=== PATIENT | female | born 1985 | race Two or more races ===

== ENCOUNTER 2017-04-09 14:03 | Observation (INO) | payer MEDICAID, OTHER ==
[~2017-04-09] VITALS: Ht 165.1 cm; Wt 149.7 kg
[2017-04-09 15:01] VITALS: BP 118/79
[2017-04-09 15:02] LABS: Basophils # (auto) 0 uL; Basophils % (auto) 0.6 % (0.0-2.0); CONDITION Y; Eosinophils # (auto) 0.1 uL; Eosinophils % (auto) 1.7 % (0.0-7.0); Hematocrit 35.8 % (36.0-46.0); Hemoglobin 11.8 g/dL (12.2-16.2); Lymphocytes # (auto) 1.8 uL; Lymphocytes % (auto) 30.7 % (10.0-50.0); Mean Corpuscular Hemoglobin 27.9 pg (28.0-32.0); Mean Corpuscular Volume 84.5 fL (80.0-100.0); Mean Platelet Volume 8.4 fL (7.4-10.4); Monocytes # (auto) 0.4 uL; Monocytes % (auto) 6.5 % (0.0-12.0); Neutrophils # (auto) 3.5 uL; Neutrophils % (auto) 60.5 % (37.0-80.0); Platelet Count (auto) 355 10^3/uL (140-450); Red Cell Distribution Width 14.3 % (11.6-16.0); White Blood Cell 5.8 10^3/uL (4.4-10.8)
[2017-04-09 15:03] LABS: Urine Bilirubin Negative (Negative); Urine Blood Negative /uL (Negative); Urine Color Yellow (Yellow); Urine Glucose Normal (Normal); Urine Ketone Negative (Negative); Urine Nitrite Negative (Negative); Urine RBC 8 /hpf (0 - 4); Urine Squamous Epithelial Cell FEW /hpf (<5); Urine Urobilinogen Normal (Negative)
[2017-04-09 15:36] LABS: Albumin 3.1 g/dL (3.4-5.0); BUN/Creatinine Ratio 13.8; Calcium 8.3 mg/dL (8.5-10.1)
[2017-04-09 15:38] LABS: Bilirubin, Total 0.2 mg/dL (0.2-1.0); Total Protein 7.4 g/dL (6.4-8.2)
[2017-04-09] MEDS ORDERED: SODIUM CHLORIDE 0.9% 1,000 ML IVB ONE (15:46)
[2017-04-09] MEDS ORDERED: LOPERAMIDE HCL 2 MG CAP PO ONE (16:00)
[2017-04-09] MEDS ORDERED: ONDANSETRON HCL 4 MG/2 ML VIAL IV ONE (16:00)
[2017-04-09 16:06] LABS: Amylase 42 U/L (25-115)
== END 2017-04-09 17:49 | disposition home or self-care (01) | DRG 249 ==
LOC: ER 14:03 → OVERFLOW 15:47 → ER 17:49
PROVIDERS: ADMIT Family Medicine; ATTEND Family Medicine
DX: K52.9 Noninfective gastroenteritis and colitis, unspecified (principal); R11.2 Nausea with vomiting, unspecified; R19.7 Diarrhea, unspecified
CPT/HCPCS: 36415; 80053; 81001; 82150; 83690; 84702; 85025; 96361; 96374; 99285; G0378; J2405